=== PATIENT | male | born 1965 | race Two or more races ===

== ENCOUNTER → 2022-04-16 | Emergency (ER) | payer OTHER ==
[~2022-04-16] VITALS: Ht 170.2 cm; Wt 95.3 kg
== END | disposition home or self-care (01) ==
LOC: ER 14:37
DX: N39.0 Urinary tract infection, site not specified (principal); R30.0 Dysuria

== ENCOUNTER 2022-06-18 00:03 | Emergency (ER) | payer OTHER ==
[~2022-06-18] VITALS: Ht 175.3 cm; Wt 108.9 kg
[2022-06-18] MEDS ORDERED: CEPHALEXIN250 MG/5 M PO (06:59)
[2022-06-18] MEDS ORDERED: KETO10TA2 PO (06:59)
== END 2022-06-18 07:42 ==
LOC: ER 00:03
DX: L08.89 Other specified local infections of the skin and subcutaneous tissue (principal); R50.9 Fever, unspecified; Z20.822 Contact with and (suspected) exposure to COVID-19

== ENCOUNTER 2023-04-14 13:47 | Emergency (ER) | payer OTHER ==
[~2023-04-14] VITALS: Ht 175.3 cm; Wt 108.9 kg
[~2023-04-14 13:47] MED LIST: CEPHALEXIN250 MG/5 M PO; KETO10TA2 PO
== END 2023-04-14 18:10 | disposition home or self-care (01) ==
LOC: ER 13:47
DX: M25.561 Pain in right knee (principal)

== ENCOUNTER 2023-07-20 08:17 | Emergency (ER) | payer OTHER ==
[~2023-07-20] VITALS: Ht 175.3 cm; Wt 105.7 kg
[2023-07-20] MEDS ORDERED: MOBIC7.5 MG PO (11:55)
== END 2023-07-20 12:15 | disposition home or self-care (01) ==
LOC: ER 08:17
DX: M25.571 Pain in right ankle and joints of right foot (principal)